=== PATIENT | male | born 1985 | race Caucasian/White ===

== ENCOUNTER 2018-09-04 12:02 | Emergency (ER) | payer OTHER ==
[2018-09-04 12:16] VITALS: BP 145/72
--- NOTE | 2018-09-04 12:45 | XRAY Report ---
Reason: rolled ankle/pain Procedure Date: 09/04/2018 Accession Number: [id number] / [id number] Procedure: XR - Ankle 3 View LT CPT Code: FULL RESULT: EXAM: LEFT ANKLE RADIOGRAPHY EXAM DATE: 09/04/2018 12:32 PM. CLINICAL HISTORY: Rolled ankle/pain. COMPARISON: None. TECHNIQUE: 3 views. FINDINGS: Bones: No recent fractures or bone lesions. Secondary ossicles noted inferior to medial malleolus with well corticated margins. Joints: Tibiotalar joint effusion. No subluxations. The ankle mortise is normally aligned. Soft Tissues: Normal. No soft tissue swelling. IMPRESSION: 1. Left tibiotalar joint effusion. 2. No fracture evident. [facility]
[2018-09-04] MEDS ORDERED: IBUPROFEN 400 MG TABLET PO STA (13:26)
--- NOTE | 2018-09-04 13:29 | ED Physician Documentation ---
History of Present Illness - Stated complaint Stated Complaint: L ANKLE INJ - Chief complaint Chief Complaint: Ext Problem - Additonal information Additional information: hx from pt 32 male playing basketball caught foot on bleachers and rolled ankle Review of Systems Musculoskeletal: reports: Pain with weight bearing PD PAST MEDICAL HISTORY - Past Medical History Past Medical History: No - Present Medications Home Medications: Ambulatory Orders Medication Instructions Recorded Confirmed Ibuprofen [Motrin] 800 mg PO Q8H PRN #30 tablet 09/04/18 - Allergies Allergies/Adverse Reactions: Allergies Allergy/AdvReac Type Severity Reaction Status Date / Time No Known Drug Allergies Allergy Verified 09/04/18 12:16 - Social History Does the pt smoke?: No Smoking Status: Never smoker PD ED PE NORMAL - Vitals Vital signs reviewed: Yes - Extremities Extremities: Other (LLE: mild fibular pain, sig TTP lateral mall and braxton to lateral mid foot, MSV intact but hurts to move toes, no open wounds) Results - Vitals Vitals: Vital Signs - 24 hr 09/04/18 12:15 Temperature 36.5 C Heart Rate 95 Respiratory 20 Rate Blood Pressure 145/72 H O2 Saturation 98 Oxygen O2 Source Room air - Rads (name of study) foot Radiology: See rad report (neg) ankle Radiology: See rad report (effusion no fx) Departure - Departure Disposition: 01 Home, Self Care Clinical Impression: Ankle sprain Qualifiers: Encounter type: initial encounter Involved ligament of ankle: unspecified ligament Laterality: left Qualified Code(s): S93.402A - Sprain of unspecified ligament of left ankle, initial encounter Foot sprain Qualifiers: Encounter type: initial encounter Laterality: left Qualified Code(s): S93.602A - Unspecified sprain of left foot, initial encounter Condition: Good Instructions: ED Sprain Ankle W X Ray, ED Sprain Foot Prescriptions: Ibuprofen [Motrin] 800 mg PO Q8H PRN #30 tablet PRN Reason: Pain Comments: The xrays do not show any fracture or dislocation Ice, elevation, MAXIM wrap for the swelling Crutches to decrease the weight bearing stress - may gradually start weight bearing as tolerated Motrin for the pain Physical therapy would be helpful to help you recover with a strong ankle Forms: Activity restrictions
--- NOTE | 2018-09-04 14:34 | XRAY Report ---
Reason: foot injury, lateral Procedure Date: 09/04/2018 Accession Number: [id number] / [id number] Procedure: XR - Foot 3 View LT CPT Code: FULL RESULT: EXAM: LEFT FOOT RADIOGRAPHY EXAM DATE: 09/04/2018 01:48 PM. CLINICAL HISTORY: Foot injury, lateral pain. COMPARISON: None. TECHNIQUE: 3 views. FINDINGS: Bones: No fractures or bone lesions. Joints: No subluxations. Soft Tissues: No soft tissue swelling. IMPRESSION: Negative left foot radiography. [facility]
== END 2018-09-04 15:09 | disposition home or self-care (01) ==
LOC: ED 12:02
DX: S93.402A Sprain of unspecified ligament of left ankle, initial encounter (principal); S93.602A Unspecified sprain of left foot, initial encounter; W23.0XXA Caught, crushed, jammed, or pinched between moving objects, initial encounter; Y93.67 Activity, basketball
CPT/HCPCS: 73610; 73630; 99283; A9270

== ENCOUNTER 2018-11-10 13:00 | Outpatient (CLI) | payer OTHER ==
--- NOTE | 2018-11-10 16:16 | MRI Report ---
Reason: PAIN IN LEFT ANKLE AND JOINTS OF LEFT FOOT Procedure Date: 11/10/2018 Accession Number: [id number] / [id number] Procedure: MRI - Ankle LT W/O CPT Code: FULL RESULT: EXAM: LEFT ANKLE/HINDFOOT MRI WITHOUT CONTRAST EXAM DATE: 11/10/2018 02:00 PM. CLINICAL HISTORY: Pain in left ankle and joints of left foot. COMPARISON: None. TECHNIQUE: Multiplanar, multisequence T1-weighted and fluid-sensitive sequences of the ankle/hindfoot without contrast. Other: None. FINDINGS: Bones: There is mild marrow edema surrounding the sinus tarsi. There are no visible fractures. There are no visible contusions. There is edema in the superior aspect of the anterior process of the calcaneum. Articular Cartilage: Unremarkable. Ligaments: There is focal bony overgrowth at the anterior margin of the fibula, at the attachment of the anterior tibiofibular ligament. The ligament appears thickened, suggesting a prior low-grade partial-thickness tear. The posterior tibiofibular ligament appears intact. There is focal bony overgrowth at the medial margin of the talus, at the attachment of the deep fibers of the medial collateral ligament. The ligament has lost its normal configuration and signal intensity, suggestive of a prior high-grade partial-thickness tear. There is a full-thickness tear of the spring ligament with mild edema of the overlying talar head, image 501/16. Some intact fibers are visible laterally. The lateral collateral ligaments appear unremarkable. Anterior Tendons: The tibialis anterior, extensor hallucis longus, and extensor digitorum longus tendons are unremarkable. Medial Tendons: The tibialis posterior, flexor digitorum longus, and flexor hallucis longus tendons are unremarkable. Lateral Tendons: The peroneus brevis and longus are unremarkable. Achilles Tendon: The Achilles tendon is unremarkable. Musculature: No edema or fatty atrophy. Other: Small ankle and subtalar joint effusions. There is increased T2 signal within the sinus tarsi, suggesting partial-thickness tear of the ligaments. No plantar fasciitis. The subcutaneous tissues are unremarkable. IMPRESSION: 1. Prior high-grade partial-thickness tears of the medial collateral ligament, ligaments of the sinus tarsi, anterior tibiofibular ligament and spring ligament. There is a full-thickness component to the spring ligament tear with an adjacent prior talar head contusion. 2. Small ankle and subtalar joint effusions. [facility] MUSCULOSKELETAL RADIOLOGY SECTION
== END 2018-11-10 13:01 | disposition home or self-care (01) ==
LOC: DI 13:00
DX: S93.492A Sprain of other ligament of left ankle, initial encounter (principal); M25.472 Effusion, left ankle